=== PATIENT | male | born 1990 | race Asian ===

== ENCOUNTER → 2017-11-11 | Outpatient (REF) | payer MEDICARE, MEDICAID ==
[2017-11-11 13:01] LABS: TOTAL 25(OH) VITAMIN D 18.1 NG/ML (30.0-100.0)
[2017-11-11 13:03] LABS: PTH INTACT 58.6 PG/ML (14.0-72.0)
[2017-11-11 13:10] LABS: ALBUMIN 3.9 GM/DL (3.2-5.2); ALBUMIN/GLOBULIN RATIO 0.95 (1.00-1.93); ALKALINE PHOSPHATASE 145 U/L (45-117); ALT/SGPT 83 U/L (12-78); ANION GAP 5 MEQ/L (8-16); AST/SGOT 41 U/L (7-37); BLOOD UREA NITROGEN 11 MG/DL (7-18); CALCIUM LEVEL 8.5 MG/DL (8.5-10.1); CARBON DIOXIDE LEVEL 28 MEQ/L (21-32); CHLORIDE LEVEL 107 MEQ/L (98-107); CHOLESTEROL LEVEL 170 MG/DL (<200); CHOLESTEROL RISK RATIO 4.047 (<5); CREATININE FOR GFR 0.83 MG/DL (0.70-1.30); GLOMERULAR FILTRATION RATE > 60.0 (>60); GLUCOSE, FASTING 91 MG/DL (70-105); HDL CHOLESTEROL 42 MG/DL (>40); LDL CHOLESTEROL 88.2 MG/DL (<100); NON-HDL-C 128 MG/DL; PHOSPHORUS LEVEL 1.9 MG/DL (2.5-4.9); POTASSIUM SERUM 4.4 MEQ/L (3.5-5.1); SODIUM LEVEL 140 MEQ/L (136-145); TRIGLYCERIDES LEVEL 199 MG/DL (<150)
[2017-11-13 14:13] LABS: VITAMIN D 1,25 DIHYDROXY 28.3 pg/mL (19.9-79.3)
== END ==
LOC: M SFHCPLAZ 08:43
DX: E83.31 Familial hypophosphatemia (principal); Z13.220 Encounter for screening for lipoid disorders; E66.01 Morbid (severe) obesity due to excess calories; Z68.36 Body mass index [BMI] 36.0-36.9, adult
CPT/HCPCS: 84100

== ENCOUNTER → 2017-12-17 | Outpatient (CLI) | payer MEDICARE, MEDICAID ==
[2017-12-17 13:32] LABS: APPEARANCE, URINE CLEAR (CLEAR); BACTERIA, URINE AUTO NEGATIVE (NEGATIVE); BILIRUBIN, URINE AUTO NEGATIVE (NEGATIVE); BLOOD, URINE BLOOD NEGATIVE (NEGATIVE); COLOR, URINE YELLOW (YELLOW); GLUCOSE, URINE (UA) AUTO NEGATIVE (NEGATIVE); KETONE, URINE AUTO NEGATIVE (NEGATIVE); LEUKOCYTE ESTERASE, URINE AUTO NEGATIVE (NEGATIVE); MUCUS, URINE SMALL (NEGATIVE); NITRITE, URINE AUTO NEGATIVE (NEGATIVE); PROTEIN, URINE AUTO NEGATIVE (NEGATIVE); RBC, URINE AUTO 0 /HPF (0-3); SPECIFIC GRAVITY URINE AUTO 1.021 (1.002-1.035); SQUAMOUS EPITHELIAL CELL UR AU 0 /HPF (0-6); UROBILINOGEN, URINE AUTO 0.2 mg/dL (0.0-2.0); WBC, URINE AUTO 0 /HPF (0-3)
[2017-12-17 13:42] LABS: ALBUMIN 3.8 GM/DL (3.2-5.2); ANION GAP 8 MEQ/L (8-16); BLOOD UREA NITROGEN 9 MG/DL (7-18); CALCIUM LEVEL 8.8 MG/DL (8.5-10.1); CARBON DIOXIDE LEVEL 30 MEQ/L (21-32); CHLORIDE LEVEL 105 MEQ/L (98-107); CREATININE FOR GFR 0.81 MG/DL (0.70-1.30); GLOMERULAR FILTRATION RATE > 60.0 (>60); GLUCOSE, FASTING 122 MG/DL (70-100); PHOSPHORUS LEVEL 1.5 MG/DL (2.5-4.9); SODIUM LEVEL 143 MEQ/L (136-145)
[2017-12-17 13:44] LABS: TOTAL 25(OH) VITAMIN D 11.4 NG/ML (30.0-100.0)
[2017-12-19 15:24] LABS: PTH INTACT 64.9 PG/ML (18.5-88.0)
== END ==
LOC: M WUC 09:48
DX: E83.31 Familial hypophosphatemia (principal)
CPT/HCPCS: 80069

== ENCOUNTER 2018-09-23 13:44 | Outpatient (CLI) | payer MEDICARE, MEDICAID ==
[~2018-09-23] VITALS: Ht 163.8 cm; Wt 98.4 kg
[2018-09-23] MEDS ORDERED: [UNRECOGNIZED DRUG - OTHER] ONE (13:45)
[2018-09-23 13:50] VITALS: BP 127/85
[2018-09-23] MEDS ORDERED: ACET1TAB55 PO (14:37)
[2018-09-23] MEDS ORDERED: IBUP200C25 PO (14:37)
[2018-09-23] MEDS ORDERED: ZYRTTAB8 PO (14:37)
[2018-09-23] MEDS: [UNRECOGNIZED DRUG - OTHER] SC SCH (14:48)
[2018-09-23 15:15] VITALS: BP 131/81
== END 2018-09-23 15:20 | disposition home or self-care (01) ==
LOC: M INFU 13:44
PROVIDERS: ATTEND Internal Medicine Nephrology
DX: E83.31 Familial hypophosphatemia (principal)
CPT/HCPCS: 96372; C9399

== ENCOUNTER → 2018-09-30 | Outpatient (CLI) | payer MEDICARE, MEDICAID ==
[2018-09-30 13:54] LABS: PHOSPHORUS LEVEL 3.3 MG/DL (2.5-4.9)
== END ==
LOC: M LAB 12:48
DX: E83.31 Familial hypophosphatemia (principal)
CPT/HCPCS: 84100

== ENCOUNTER 2018-11-18 14:34 | Outpatient (CLI) | payer MEDICARE, MEDICAID ==
[~2018-11-18] VITALS: Ht 165.1 cm; Wt 98.4 kg
[~2018-11-18 14:34] MED LIST: ACET1TAB55 PO; IBUP200C25 PO; ZYRTTAB8 PO
[2018-11-18 14:40] VITALS: BP 152/90
[2018-11-18] MEDS ORDERED: [UNRECOGNIZED DRUG - OTHER] SC ONE (15:00)
[2018-11-18 16:00] VITALS: BP 144/87
== END 2018-11-18 16:00 | disposition home or self-care (01) ==
LOC: M INFU 14:34
PROVIDERS: ATTEND Internal Medicine Nephrology
DX: E83.31 Familial hypophosphatemia (principal); Z88.8 Allergy status to other drugs, medicaments and biological substances; Z88.5 Allergy status to narcotic agent
CPT/HCPCS: 96372; J0584

== ENCOUNTER 2018-12-16 11:34 | Outpatient (CLI) | payer MEDICARE, MEDICAID ==
[~2018-12-16] VITALS: Ht 167.6 cm; Wt 98.4 kg
[2018-12-16 11:40] VITALS: BP 140/93
[2018-12-16] MEDS ORDERED: [UNRECOGNIZED DRUG - OTHER] SC ONE (12:00)
[2018-12-16] MEDS ORDERED: [UNRECOGNIZED DRUG - CODE] SC (12:06)
[2018-12-16 13:20] VITALS: BP 134/88
== END 2018-12-16 13:20 | disposition home or self-care (01) ==
LOC: M INFU 11:34
PROVIDERS: ATTEND Internal Medicine Nephrology
DX: E83.31 Familial hypophosphatemia (principal); Z88.5 Allergy status to narcotic agent; Z88.8 Allergy status to other drugs, medicaments and biological substances
CPT/HCPCS: 96372; J0584

== ENCOUNTER 2019-01-13 11:57 | Outpatient (CLI) | payer MEDICARE, MEDICAID ==
[~2019-01-13] VITALS: Ht 165.1 cm; Wt 98.4 kg
[~2019-01-13 11:57] MED LIST changes: +[UNRECOGNIZED DRUG - CODE] SC
[2019-01-13 12:05] VITALS: BP 140/89
[2019-01-13] MEDS ORDERED: [UNRECOGNIZED DRUG - OTHER] SC ONE (12:15)
[2019-01-13 13:45] VITALS: BP 155/90
== END 2019-01-13 13:45 | disposition home or self-care (01) ==
LOC: M INFU 11:57
PROVIDERS: ATTEND Internal Medicine Nephrology
DX: E83.31 Familial hypophosphatemia (principal); Z88.5 Allergy status to narcotic agent; Z88.8 Allergy status to other drugs, medicaments and biological substances
CPT/HCPCS: 96372; J0584

== ENCOUNTER → 2019-03-11 | Outpatient (REF) | payer MEDICARE, MEDICAID ==
[2019-03-11 18:39] LABS: ALBUMIN 4.1 GM/DL (3.2-5.2); BILIRUBIN,DIRECT 0.2 MG/DL (0.0-0.2); BILIRUBIN,TOTAL 1.2 MG/DL (0.2-1.0)
== END ==
LOC: M LAB REF 17:08
PROVIDERS: ATTEND Internal Medicine Nephrology
DX: R94.5 Abnormal results of liver function studies (principal)

== ENCOUNTER → 2019-04-13 | Outpatient (REF) | payer MEDICARE, MEDICAID ==
[2019-04-13 18:49] LABS: ALBUMIN 3.8 GM/DL (3.2-5.2); BILIRUBIN,DIRECT 0.2 MG/DL (0.0-0.2); BILIRUBIN,TOTAL 1.3 MG/DL (0.2-1.0); TOTAL PROTEIN 7.5 GM/DL (6.4-8.2)
== END ==
LOC: M LAB REF 17:10
PROVIDERS: ATTEND Internal Medicine Nephrology
DX: R94.5 Abnormal results of liver function studies (principal)

== ENCOUNTER → 2019-05-26 | Outpatient (REF) | payer MEDICARE, MEDICAID ==
[2019-05-26 13:38] LABS: ALBUMIN 3.6 GM/DL (3.2-5.2); BILIRUBIN,DIRECT 0.2 MG/DL (0.0-0.2); BILIRUBIN,TOTAL 1.1 MG/DL (0.2-1.0); TOTAL PROTEIN 7.5 GM/DL (6.4-8.2)
== END ==
LOC: M LAB REF 12:56
PROVIDERS: ATTEND Internal Medicine Nephrology
DX: R94.5 Abnormal results of liver function studies (principal)

== ENCOUNTER → 2019-06-24 | Outpatient (REF) | payer MEDICARE, MEDICAID ==
[2019-06-24 18:23] LABS: ALBUMIN 3.9 GM/DL (3.2-5.2); BILIRUBIN,DIRECT 0.2 MG/DL (0.0-0.2); BILIRUBIN,TOTAL 1.1 MG/DL (0.2-1.0); TOTAL PROTEIN 7.8 GM/DL (6.4-8.2)
[2019-06-29 14:29] LABS: EBV VIRAL CAPSID AG IgM <36.0 U/mL (0.0-35.9)
== END ==
LOC: M LAB REF 17:20
PROVIDERS: ATTEND Internal Medicine Nephrology
DX: R94.5 Abnormal results of liver function studies (principal)

== ENCOUNTER → 2019-06-29 | Outpatient (CLI) | payer MEDICARE, MEDICAID ==
--- NOTE | 2019-06-30 11:42 | REP ---
Abdominal right upper quadrant ultrasound, stat request: The studies performed for abnormal liver function tests. Comparison is the abdomen pelvis CT dated 03/04/2011. The the patient has a cholecystectomy. There is no intrahepatic or extrahepatic biliary duct dilatation, the common biliary duct measures 9 mm in diameter. This is normal in a postcholecystectomy patient. The hepatic parenchyma is hyperechoic compatible with hepato steatosis. There are no hepatic masses. Pancreas is obscured by bowel gas. There is no right renal calculus, hydronephrosis, mass or cyst. The right kidney is normal size measuring 11.6 x 6.3 x 4.6 cm. There is no right upper quadrant ascites. Impression: Cholecystectomy. Pancreas obscured by bowel gas. Hepato steatosis. Electronically Signed by Brett Jorge MD 06/29/2019 08:44 A
== END ==
LOC: M RAD 07:51
PROVIDERS: ATTEND Nurse Practitioner Family
DX: K76.0 Fatty (change of) liver, not elsewhere classified (principal); R94.5 Abnormal results of liver function studies; Z90.49 Acquired absence of other specified parts of digestive tract

== ENCOUNTER → 2019-07-03 | Outpatient (REF) | payer MEDICARE, MEDICAID ==
[~2019-07-03] MED LIST changes: +AMLO5TAB6 PO; +METO25TA4 PO; +OYSCTAB3 PO
[2019-07-03 17:57] LABS: ALBUMIN 3.9 GM/DL (3.2-5.2); ALT/SGPT 164 U/L (12-78); BILIRUBIN,TOTAL 1.2 MG/DL (0.2-1.0); BLOOD UREA NITROGEN 13 MG/DL (7-18); CALCIUM LEVEL 8.9 MG/DL (8.5-10.1); CARBON DIOXIDE LEVEL 28 MEQ/L (21-32); CHLORIDE LEVEL 109 MEQ/L (98-107); GLOMERULAR FILTRATION RATE > 60.0 (>60); GLUCOSE, FASTING 103 MG/DL (70-100); MAGNESIUM LEVEL 2.2 MG/DL (1.8-2.4); PHOSPHORUS LEVEL 1.6 MG/DL (2.5-4.9); POTASSIUM SERUM 3.9 MEQ/L (3.5-5.1); SODIUM LEVEL 141 MEQ/L (136-145); TOTAL PROTEIN 7.9 GM/DL (6.4-8.2)
== END ==
LOC: M LAB REF 16:53
PROVIDERS: ATTEND Nurse Practitioner Family
DX: R94.5 Abnormal results of liver function studies (principal); E83.31 Familial hypophosphatemia

== ENCOUNTER → 2019-07-28 | Outpatient (REF) | payer MEDICARE, MEDICAID ==
[~2019-07-28] MED LIST changes: -AMLO5TAB6 PO; -METO25TA4 PO; -OYSCTAB3 PO
[2019-07-28 18:20] LABS: ALBUMIN 3.7 GM/DL (3.2-5.2); ALT/SGPT 146 U/L (12-78); BILIRUBIN,DIRECT 0.2 MG/DL (0.0-0.2); BILIRUBIN,TOTAL 0.9 MG/DL (0.2-1.0); TOTAL PROTEIN 7.4 GM/DL (6.4-8.2)
[2019-07-29 13:35] LABS: HEPATITIS B SURFACE ANTIGEN NEGATIVE (NEGATIVE)
[2019-07-29 14:01] LABS: HEPATITIS C VIRUS ABY INDEX 0.2 INDEX (<0.8)
[2019-07-29 14:02] LABS: HEPATITIS B CORE ANTIBODY IGM NEGATIVE (NEGATIVE)
[2019-07-29 14:04] LABS: HEPATITIS A ANTIBODY IGM NEGATIVE (NEGATIVE)
== END ==
LOC: M LAB REF 17:07
PROVIDERS: ATTEND Nurse Practitioner Family
DX: R94.5 Abnormal results of liver function studies (principal); Z79.899 Other long term (current) drug therapy

== ENCOUNTER 2019-07-31 15:59 | Outpatient (CLI) | payer MEDICARE, MEDICAID ==
[~2019-07-31] VITALS: Ht 165.1 cm; Wt 101.4 kg
[2019-07-31 16:00] VITALS: BP 132/80
[2019-07-31] MEDS ORDERED: [UNRECOGNIZED DRUG - OTHER] SC ONE (17:00)
== END 2019-07-31 17:00 | disposition home or self-care (01) ==
LOC: M INFU 15:59
PROVIDERS: ATTEND Internal Medicine Nephrology
DX: E83.31 Familial hypophosphatemia (principal)
CPT/HCPCS: 96372; J0584

== ENCOUNTER → 2019-08-25 | Outpatient (REF) | payer MEDICARE, MEDICAID ==
[2019-08-26 10:37] LABS: HEPATITIS A ANTIBODY IGM NEGATIVE (NEGATIVE); HEPATITIS B CORE ANTIBODY IGM NEGATIVE (NEGATIVE); HEPATITIS B SURFACE ANTIGEN NEGATIVE (NEGATIVE); HEPATITIS C VIRUS ABY INDEX 0.3 INDEX (<0.8)
== END ==
LOC: M LAB REF 13:21
PROVIDERS: ATTEND Nurse Practitioner Family
DX: R94.5 Abnormal results of liver function studies (principal)

== ENCOUNTER 2019-08-28 15:53 | Outpatient (CLI) | payer MEDICARE, MEDICAID ==
[~2019-08-28] VITALS: Ht 165.1 cm; Wt 101.3 kg
[2019-08-28 16:00] VITALS: BP 133/100
[2019-08-28] MEDS ORDERED: [UNRECOGNIZED DRUG - OTHER] SC ONE (16:30)
[2019-08-28 17:02] VITALS: BP 134/81
[2019-09-03] MEDS ORDERED: REFRIGERATOR IV KEYS XX PRN (14:45)
[2019-09-03] MEDS ORDERED: MIDAZOLAM HCL 100 MG in D5W 80 ML IV SCH (14:45)
== END 2019-08-28 17:02 | disposition home or self-care (01) ==
LOC: M INFU 15:53
PROVIDERS: ATTEND Internal Medicine Nephrology
DX: E83.31 Familial hypophosphatemia (principal)
CPT/HCPCS: 96372; J0584

== ENCOUNTER 2019-09-25 15:45 | Outpatient (CLI) | payer MEDICARE, MEDICAID ==
[~2019-09-25] VITALS: Ht 165.1 cm; Wt 101.3 kg
[~2019-09-25 15:45] MED LIST changes: -AMLO5TAB6 PO; -METO25TA4 PO; -OYSCTAB3 PO
[2019-09-25 16:00] VITALS: BP 137/88
[2019-09-25] MEDS ORDERED: [UNRECOGNIZED DRUG - OTHER] SC ONE (16:00)
[2019-09-25] MEDS ORDERED: METO25TA4 PO (16:39)
[2019-09-25] MEDS ORDERED: OYSCTAB3 PO (16:39)
[2019-09-25] MEDS ORDERED: AMLO5TAB6 PO (16:39)
[2019-09-25 16:50] VITALS: BP 138/89
== END 2019-09-25 16:50 | disposition home or self-care (01) ==
LOC: M INFU 15:45
PROVIDERS: ATTEND Internal Medicine Nephrology
DX: E83.31 Familial hypophosphatemia (principal); R94.5 Abnormal results of liver function studies; Z88.5 Allergy status to narcotic agent; Z88.8 Allergy status to other drugs, medicaments and biological substances
CPT/HCPCS: 80076; 96372; J0584

== ENCOUNTER → 2019-09-25 | Outpatient (REF) | payer MEDICARE, MEDICAID ==
[~2019-09-25] MED LIST changes: +AMLO5TAB6 PO; +METO25TA4 PO; +OYSCTAB3 PO
[2019-09-25 13:45] LABS: ALBUMIN 3.7 GM/DL (3.2-5.2); BILIRUBIN,DIRECT 0.2 MG/DL (0.0-0.2); BILIRUBIN,TOTAL 1.2 MG/DL (0.2-1.0); TOTAL PROTEIN 7.9 GM/DL (6.4-8.2)
== END ==
LOC: M LAB REF 13:06
PROVIDERS: ATTEND Nurse Practitioner Family
DX: R94.5 Abnormal results of liver function studies (principal)

== ENCOUNTER 2019-11-02 16:01 | Outpatient (CLI) | payer MEDICARE, MEDICAID ==
[~2019-11-02] VITALS: Ht 167.6 cm; Wt 101.3 kg
[2019-11-02 16:10] VITALS: BP 136/84
[2019-11-02] MEDS ORDERED: [UNRECOGNIZED DRUG - OTHER] SC ONE (17:00)
[2019-11-02 17:07] VITALS: BP 142/92
== END 2019-11-02 17:08 | disposition home or self-care (01) ==
LOC: M INFU 16:01
PROVIDERS: ATTEND Internal Medicine Nephrology
DX: E83.31 Familial hypophosphatemia (principal)
CPT/HCPCS: 73721; J0584

== ENCOUNTER → 2019-11-02 | Outpatient (CLI) | payer MEDICARE, MEDICAID ==
[~2019-11-02] MED LIST changes: +AMLO5TAB6 PO; +METO25TA4 PO; +OYSCTAB3 PO
--- NOTE | 2019-11-12 20:09 | REP ---
MRI left ankle without contrast: History: Pain in the left ankle. No comparison radiographs. History of hypophosphatemia. Technique: Axial, coronal and sagittal imaging planes utilized. T1 and T2-weighted scans were included with and without fat saturation. MRI findings: Sagittal images show evidence of pes planus. There is a zone of marrow edema in the mid calcaneus along its cranial aspect where there is an irregular low T1, low T2 signal intensity line. This is consistent with a calcaneal stress fracture. There is relatively little marrow edema suggesting that it may be a chronic finding. No displacement is seen. Cortical and medullary bone signal intensity are otherwise normal in the tarsal bones. The talar dome and tibial plafond appear intact. No osteochondral defect lesion is seen. The Achilles tendon is normal in coarse, caliber and signal intensity. Plantar fascia are smooth. The tibialis posterior, flexor digitorum, and flexor hallicis tendons appear intact medially. Laterally, peroneus longus and brevis tendons have an intact appearance. No abnormalities seen in the deltoid ligament. There is no evidence of anterior talofibular ligament disruption. The anterior inferior tibiofibular and the posterior inferior tibiofibular ligaments appear intact. The posterior talofibular ligament has an intact appearance. Calcaneofibular ligament appears intact. Impression: Findings consistent with a calcaneal stress fracture in the cranial aspect of the mid calcaneus. There is some adjacent ankle joint fluid. Pes planus is noted. Electronically Signed by Ash Buckner MD 11/12/2019 08:20 P
== END ==
LOC: M RAD 07:12
PROVIDERS: ATTEND Nurse Practitioner Family
DX: M21.42 Flat foot [pes planus] (acquired), left foot (principal); M25.572 Pain in left ankle and joints of left foot; E83.31 Familial hypophosphatemia

== ENCOUNTER → 2019-11-07 | Outpatient (CLI) | payer MEDICARE, MEDICAID ==
--- NOTE | 2019-11-07 13:49 | REP ---
RIGHT HIP: Two views. HISTORY: Pain in the right hip. FINDINGS: AP and frog-leg views of the right hip demonstrate a screw plate fixation device in place along the lateral aspect of the femur. The end of this screw plate fixation device is not included in the field of view. No femoral fracture is seen. Femoral head is smooth and rounded. There is a surgical clip in the right pelvis. IMPRESSION: Orthopedic fixation device along the lateral aspect of the proximal femur extends off the field of view. No fracture or other acute abnormality seen. Electronically Signed by Ash Buckner MD 11/07/2019 04:10 P
--- NOTE | 2019-11-07 13:50 | REP ---
RIGHT FEMUR SERIES: Four views. HISTORY: Pain in the right mid thigh. No comparison right femur radiographs. FINDINGS: There is a screw plate fixation device along the lateral aspect of the femur from the subtrochanteric region to the lateral femoral condyle. There are associated surgical clips. Mild post-traumatic deformity is seen in the healed fracture in the mid diaphysis. No acute bony abnormality is seen. Electronically Signed by Ash Buckner MD 11/07/2019 04:10 P
== END ==
LOC: M RAD 12:12
PROVIDERS: ATTEND Nurse Practitioner Family
DX: M25.551 Pain in right hip (principal); E83.31 Familial hypophosphatemia; Z96.7 Presence of other bone and tendon implants

== ENCOUNTER → 2019-12-01 | Outpatient (REF) | payer MEDICARE, MEDICAID ==
[2019-12-01 18:41] LABS: ALBUMIN 3.8 GM/DL (3.2-5.2); BILIRUBIN,DIRECT 0.2 MG/DL (0.0-0.2); BILIRUBIN,TOTAL 0.9 MG/DL (0.2-1.0); TOTAL PROTEIN 7.7 GM/DL (6.4-8.2)
== END ==
LOC: M LAB REF 17:45
PROVIDERS: ATTEND Nurse Practitioner Family
DX: R94.5 Abnormal results of liver function studies (principal)

== ENCOUNTER 2019-12-04 15:50 | Outpatient (CLI) | payer MEDICARE, MEDICAID ==
[~2019-12-04] VITALS: Ht 167.6 cm; Wt 101.3 kg
[2019-12-04] MEDS ORDERED: [UNRECOGNIZED DRUG - OTHER] SC ONE (16:45)
[2019-12-04 17:24] VITALS: BP 140/95
== END 2019-12-04 17:37 | disposition home or self-care (01) ==
LOC: M INFU 15:50
PROVIDERS: ATTEND Internal Medicine Nephrology
DX: E83.31 Familial hypophosphatemia (principal); Z88.4 Allergy status to anesthetic agent; Z88.5 Allergy status to narcotic agent
CPT/HCPCS: 96372; J0584

== ENCOUNTER 2019-12-31 14:28 | Outpatient (CLI) | payer MEDICARE, MEDICAID ==
[~2019-12-31] VITALS: Ht 167.6 cm; Wt 101.3 kg
[2019-12-31 14:30] VITALS: BP 131/86
[2019-12-31 15:00] VITALS: BP 132/85
[2019-12-31] MEDS ORDERED: [UNRECOGNIZED DRUG - OTHER] SC ONE (15:00)
== END 2019-12-31 15:00 | disposition home or self-care (01) ==
LOC: M INFU 14:28
PROVIDERS: ATTEND Internal Medicine Nephrology
DX: E83.31 Familial hypophosphatemia (principal); Z88.4 Allergy status to anesthetic agent; Z88.5 Allergy status to narcotic agent
CPT/HCPCS: 96372; J0584

== ENCOUNTER 2020-01-28 16:48 | Outpatient (CLI) | payer MEDICARE, MEDICAID ==
[~2020-01-28] VITALS: Ht 167.6 cm; Wt 101.3 kg
[2020-01-28] MEDS ORDERED: [UNRECOGNIZED DRUG - OTHER] SC SCH (17:00)
[2020-01-28 17:05] VITALS: BP 145/86
== END 2020-01-28 17:25 | disposition home or self-care (01) ==
LOC: M INFU 16:48
PROVIDERS: ATTEND Internal Medicine Nephrology
DX: E83.31 Familial hypophosphatemia (principal); Z88.4 Allergy status to anesthetic agent; Z88.5 Allergy status to narcotic agent
CPT/HCPCS: 96372; J0584

== ENCOUNTER 2020-02-29 16:24 | Outpatient (CLI) | payer MEDICARE, MEDICAID ==
[~2020-02-29] VITALS: Ht 167.6 cm; Wt 101.3 kg
[2020-02-29] MEDS ORDERED: [UNRECOGNIZED DRUG - OTHER] SC ONE (17:00)
== END 2020-02-29 16:55 | disposition home or self-care (01) ==
LOC: M INFU 16:24
PROVIDERS: ATTEND Internal Medicine Nephrology
DX: E83.31 Familial hypophosphatemia (principal); Z88.1 Allergy status to other antibiotic agents; Z88.2 Allergy status to sulfonamides; Z88.8 Allergy status to other drugs, medicaments and biological substances
CPT/HCPCS: 96372; J0584

== ENCOUNTER 2020-03-31 16:43 | Outpatient (CLI) | payer MEDICARE, MEDICAID ==
[~2020-03-31] VITALS: Ht 167.6 cm; Wt 101.3 kg
[2020-03-31 17:18] VITALS: BP 136/87
[2020-03-31] MEDS ORDERED: [UNRECOGNIZED DRUG - OTHER] SC ONE (18:00)
== END 2020-03-31 17:20 | disposition home or self-care (01) ==
LOC: M INFU 16:43
PROVIDERS: ATTEND Internal Medicine Nephrology
DX: E83.31 Familial hypophosphatemia (principal)
CPT/HCPCS: 96372; J0584

== ENCOUNTER → 2020-05-04 | Outpatient (REF) | payer MEDICARE, MEDICAID ==
[2020-05-04 17:32] LABS: ALBUMIN 3.9 GM/DL (3.2-5.2); BILIRUBIN,DIRECT 0.2 MG/DL (0.0-0.2); BILIRUBIN,TOTAL 1.2 MG/DL (0.2-1.0)
== END ==
LOC: M LAB REF 16:36
PROVIDERS: ATTEND Internal Medicine Nephrology
DX: R94.5 Abnormal results of liver function studies (principal)

== ENCOUNTER 2020-05-12 15:49 | Outpatient (CLI) | payer MEDICARE, MEDICAID ==
[~2020-05-12] VITALS: Ht 167.6 cm; Wt 101.3 kg
[~2020-05-12 15:49] MED LIST changes: +AMLO1TAB24 PO; -AMLO5TAB6 PO
[2020-05-12] MEDS ORDERED: [UNRECOGNIZED DRUG - OTHER] SC ONE (16:00)
[2020-05-12 16:01] VITALS: BP 143/90
[2020-05-12 16:24] VITALS: BP 148/89
== END 2020-05-12 16:25 | disposition home or self-care (01) ==
LOC: M INFU 15:49
PROVIDERS: ATTEND Internal Medicine Nephrology
DX: E83.31 Familial hypophosphatemia (principal)
CPT/HCPCS: 96372; J0584

== ENCOUNTER 2020-06-09 13:30 | Outpatient (CLI) | payer MEDICARE, MEDICAID ==
[2020-06-09] MEDS ORDERED: [UNRECOGNIZED DRUG - OTHER] ONE (13:31)
== END 2020-06-09 16:50 | disposition home or self-care (01) ==
LOC: M INFU 13:30
PROVIDERS: ATTEND Internal Medicine Nephrology
DX: E83.31 Familial hypophosphatemia (principal)
CPT/HCPCS: 96365; J0584

== ENCOUNTER 2020-07-13 11:59 | Outpatient (CLI) | payer MEDICARE, MEDICAID ==
[~2020-07-13] VITALS: Ht 167.6 cm; Wt 101.3 kg
[~2020-07-13 11:59] MED LIST changes: +[UNRECOGNIZED DRUG - OTHER] SC ONE
[2020-07-13 12:00] VITALS: BP 152/89
[2020-07-13] MEDS ORDERED: [UNRECOGNIZED DRUG - OTHER] SC ONE (12:00)
== END 2020-07-13 12:25 | disposition home or self-care (01) ==
LOC: M INFU 11:59
PROVIDERS: ATTEND Internal Medicine Nephrology
DX: E83.31 Familial hypophosphatemia (principal)
CPT/HCPCS: 96372; J0584

== ENCOUNTER 2020-08-10 11:48 | Outpatient (CLI) | payer MEDICARE, MEDICAID ==
[~2020-08-10] VITALS: Ht 167.6 cm; Wt 101.3 kg
[~2020-08-10 11:48] MED LIST changes: -[UNRECOGNIZED DRUG - OTHER] SC ONE
[2020-08-10 11:55] VITALS: BP 138/89
[2020-08-10] MEDS ORDERED: METO37.5 PO (11:58)
[2020-08-10] MEDS: [UNRECOGNIZED DRUG - OTHER] SC ONE (12:07)
== END 2020-08-10 12:35 | disposition home or self-care (01) ==
LOC: M INFU 11:48
PROVIDERS: ATTEND Internal Medicine Nephrology
DX: E83.31 Familial hypophosphatemia (principal)
CPT/HCPCS: 96372; J0584

== ENCOUNTER → 2020-08-25 | Outpatient (CLI) | payer MEDICARE, MEDICAID ==
[~2020-08-25] MED LIST changes: +METO37.5 PO
[2020-08-25 19:45] LABS: BASO # 0.1 10^3/uL (0.0-0.2); BASO % 0.8 % (0.0-1.0); EOS # 0.3 10^3/uL (0.0-0.5); EOS % 2.6 % (0.0-3.0); HEMATOCRIT 49.2 % (42.0-52.0); HEMOGLOBIN 16.8 g/dl (13.5-17.5); LYMPH # 3.6 10^3/uL (1.5-5.0); LYMPH % 34.2 % (24.0-44.0); MEAN CORPUSCULAR HEMOGLOBIN 30.3 pg (27.0-33.0); MEAN CORPUSCULAR HGB CONC 34.1 g/dl (32.0-36.5); MEAN CORPUSCULAR VOLUME 88.8 fl (80.0-96.0); MONO # 0.8 10^3/uL (0.0-0.8); MONO % 7.2 % (0.0-5.0); NEUTROPHILS # 5.8 10^3/uL (1.5-8.5); NEUTROPHILS % 54.9 % (36.0-66.0); PLATELET COUNT, AUTOMATED 332 10^3/uL (150-450); RED BLOOD COUNT 5.54 10^6/uL (4.30-6.10); WHITE BLOOD COUNT 10.6 10^3/uL (4.0-10.0)
[2020-08-25 20:00] LABS: INR 0.93; PROTHROMBIN TIME 12.7 SECONDS (12.5-14.3)
[2020-08-25 20:01] LABS: PARTIAL THROMBOPLASTIN TIME 29.5 SECONDS (24.2-38.5)
[2020-08-25 20:21] LABS: ALT/SGPT 136 U/L (12-78); BILIRUBIN,DIRECT 0.2 MG/DL (0.0-0.2); BILIRUBIN,TOTAL 1.2 MG/DL (0.2-1.0); BLOOD UREA NITROGEN 8 MG/DL (7-18); CALCIUM LEVEL 9.1 MG/DL (8.5-10.1); CARBON DIOXIDE LEVEL 27 MEQ/L (21-32); CHLORIDE LEVEL 104 MEQ/L (98-107); CREATININE FOR GFR 0.86 MG/DL (0.70-1.30); FERRITIN 302 NG/ML (26-388); GLOMERULAR FILTRATION RATE > 60.0 (>60); GLUCOSE, FASTING 69 MG/DL (70-100); HEPATITIS B SURFACE ANTIBODY NEGATIVE (POSITIVE); IMMUNOGLOBULIN G 1500 MG/DL (681-1648); IMMUNOGLOBULIN M 78.5 MG/DL (40-230); IRON (FE) 86 UG/DL (65-175); PERCENT SATURATION 27.1 % (19.7-50.0); POTASSIUM SERUM 3.7 MEQ/L (3.5-5.1); SODIUM LEVEL 138 MEQ/L (136-145); TOTAL IRON BINDING CAPACITY 317 UG/DL (250-450); TOTAL PROTEIN 8.2 GM/DL (6.4-8.2)
[2020-08-25 20:31] LABS: HEPATITIS B SURFACE ANTIGEN NEGATIVE (NEGATIVE)
[2020-08-25 20:58] LABS: HEPATITIS C VIRUS ABY INDEX 0.1 INDEX (<0.8)
[2020-08-29 17:06] LABS: AFP TUMOR TOTAL 2.2 ng/mL (0.0-8.0); ALPHA 1 ANTITRYPSIN 143 mg/dL (95-164); ANTI-MITOCHONDRIAL ANTIBODY <20.0 Units (0.0-20.0); ANTINUCLEAR ANTIBODIES DIRECT Negative (Negative); CERULOPLASMIN 26.8 mg/dL (16.0-31.0); HEPATITIS A IgG TOTAL Negative (Negative); TRANSFERRIN 247 mg/dL (177-329)
== END ==
LOC: M WUC 16:23
PROVIDERS: ATTEND Nurse Practitioner Family
DX: R74.8 Abnormal levels of other serum enzymes (principal); I25.10 Atherosclerotic heart disease of native coronary artery without angina pectoris; Z79.899 Other long term (current) drug therapy

== ENCOUNTER → 2020-09-12 | Outpatient (CLI) | payer MEDICARE, MEDICAID ==
[~2020-09-12] VITALS: Ht 167.6 cm; Wt 101.0 kg
[~2020-09-12] MED LIST changes: +[UNRECOGNIZED DRUG - OTHER] SC ONE
[2020-09-12 16:24] VITALS: BP 161/110
== END ==
LOC: M INFU 16:08
PROVIDERS: ATTEND Internal Medicine Nephrology
DX: E83.31 Familial hypophosphatemia (principal); Z88.6 Allergy status to analgesic agent
CPT/HCPCS: 96372; J0584

== ENCOUNTER 2020-10-12 15:59 | Outpatient (CLI) | payer MEDICARE, MEDICAID ==
[~2020-10-12] VITALS: Ht 167.6 cm; Wt 101.0 kg
[~2020-10-12 15:59] MED LIST changes: -[UNRECOGNIZED DRUG - OTHER] SC ONE
[2020-10-12] MEDS ORDERED: [UNRECOGNIZED DRUG - OTHER] SC ONE (16:00)
[2020-10-12 16:10] VITALS: BP 144/93
== END 2020-10-12 16:30 | disposition home or self-care (01) ==
LOC: M INFU 15:59
PROVIDERS: ATTEND Internal Medicine Nephrology
DX: E83.31 Familial hypophosphatemia (principal); Z88.6 Allergy status to analgesic agent
CPT/HCPCS: 96372; J0584

== ENCOUNTER 2020-11-15 15:50 | Outpatient (CLI) | payer MEDICARE, MEDICAID ==
[~2020-11-15] VITALS: Ht 167.6 cm; Wt 101.0 kg
[2020-11-15 16:00] VITALS: BP 161/92
[2020-11-15] MEDS ORDERED: [UNRECOGNIZED DRUG - OTHER] SC ONE (16:00)
[2020-11-15 16:30] VITALS: BP 158/91
== END 2020-11-15 16:30 | disposition home or self-care (01) ==
LOC: M INFU 15:50
PROVIDERS: ATTEND Internal Medicine Nephrology
DX: E83.31 Familial hypophosphatemia (principal); Z88.6 Allergy status to analgesic agent; Z88.8 Allergy status to other drugs, medicaments and biological substances
CPT/HCPCS: 96372; J0584

== ENCOUNTER 2020-12-16 16:19 | Outpatient (CLI) | payer MEDICARE, MEDICAID ==
[~2020-12-16] VITALS: Ht 167.6 cm; Wt 101.0 kg
[2020-12-16] MEDS ORDERED: [UNRECOGNIZED DRUG - OTHER] SC ONE (16:30)
[2020-12-16 16:43] VITALS: BP 138/88
== END 2020-12-16 17:00 | disposition home or self-care (01) ==
LOC: M INFU 16:19
PROVIDERS: ATTEND Internal Medicine Nephrology
DX: E83.31 Familial hypophosphatemia (principal); Z88.8 Allergy status to other drugs, medicaments and biological substances; Z88.6 Allergy status to analgesic agent
CPT/HCPCS: 96372; J0584

== ENCOUNTER 2021-01-13 16:14 | Outpatient (CLI) | payer MEDICARE, MEDICAID ==
[~2021-01-13] VITALS: Ht 167.6 cm; Wt 101.0 kg
[~2021-01-13 16:14] MED LIST changes: +[UNRECOGNIZED DRUG - OTHER] SC ONE
[2021-01-13 16:15] VITALS: BP 150/98
[2021-01-13 17:00] VITALS: BP 148/95
== END 2021-01-13 17:00 | disposition home or self-care (01) ==
LOC: M INFU 16:14
PROVIDERS: ATTEND Internal Medicine Nephrology
DX: E83.31 Familial hypophosphatemia (principal); Z88.6 Allergy status to analgesic agent; Z88.8 Allergy status to other drugs, medicaments and biological substances
CPT/HCPCS: 82340; 82570; 96372; J0584

== ENCOUNTER → 2021-01-13 | Outpatient (REF) | payer MEDICARE, MEDICAID ==
[2021-01-13 19:37] LABS: CALCIUM,RANDOM URINE 5.3 MG/DL; CREATININE,RANDOM URINE 33.6 MG/DL
== END ==
LOC: M LAB REF 18:17
PROVIDERS: ATTEND Nurse Practitioner Family
DX: E83.31 Familial hypophosphatemia (principal)

== ENCOUNTER → 2021-02-01 | Outpatient (CLI) | payer MEDICARE, MEDICAID ==
[~2021-02-01] MED LIST changes: -[UNRECOGNIZED DRUG - OTHER] SC ONE
--- NOTE | 2021-02-02 03:43 | REP ---
INDICATION: CALCULUS OF KIDNEY COMPARISON: 03/04/2011 TECHNIQUE: Axial noncontrast images from the lung bases to the pubic symphysis with coronal and sagittal reformations. This CT examination was performed using the following dose reduction techniques: Automated exposure control, adjustment of mA and/or kv according to the patient's size, and use of iterative reconstruction technique. FINDINGS: Lung bases are clear. Visualized heart and pericardium normal. Liver demonstrates fatty infiltration. The spleen, pancreas, bilateral adrenal glands and kidneys are normal. Specifically, the kidneys are without perinephric stranding, hydroureteronephrosis, intrarenal or obstructing ureteral calculi. The enteric system is unremarkable and without obstruction or acute inflammatory process. Normal terminal ileum and appendix identified in the right lower quadrant. Pelvis demonstrates normal bladder and age-appropriate prostate/seminal vesicles. No ascites. No free air. No adenopathy. No focal inflammatory stranding. Abdominal aorta without aneurysm. Musculoskeletal structures are intact and without acute osseous abnormality. IMPRESSION: No acute abdominopelvic pathology appreciated. Normal appearance of the kidneys without nephrolithiasis or hydronephrosis. Hepatosteatosis. <Electronically signed by Jos Slater > 02/02/21 033
== END ==
LOC: M RAD 18:12
PROVIDERS: ATTEND Nurse Practitioner Family
DX: N20.0 Calculus of kidney (principal)

== ENCOUNTER 2021-02-15 15:50 | Outpatient (CLI) | payer MEDICARE, MEDICAID ==
[~2021-02-15] VITALS: Ht 167.6 cm; Wt 101.0 kg
[2021-02-15] MEDS ORDERED: [UNRECOGNIZED DRUG - OTHER] SC ONE (16:00)
[2021-02-15 16:05] VITALS: BP 150/97
== END 2021-02-15 16:15 | disposition home or self-care (01) ==
LOC: M INFU 15:50
PROVIDERS: ATTEND Internal Medicine Nephrology
DX: E83.31 Familial hypophosphatemia (principal); Z88.8 Allergy status to other drugs, medicaments and biological substances
CPT/HCPCS: 96372; J0584

== ENCOUNTER 2021-03-20 17:19 | Outpatient (CLI) | payer MEDICARE, MEDICAID ==
[~2021-03-20] VITALS: Ht 167.6 cm; Wt 101.0 kg
[~2021-03-20 17:19] MED LIST changes: +[UNRECOGNIZED DRUG - OTHER] SC ONE
[2021-03-20 17:50] VITALS: BP 141/98
== END 2021-03-20 17:55 | disposition home or self-care (01) ==
LOC: M INFU 17:19
PROVIDERS: ATTEND Internal Medicine Nephrology
DX: E78.01 Familial hypercholesterolemia (principal); Z88.8 Allergy status to other drugs, medicaments and biological substances
CPT/HCPCS: 96372; J0584

== ENCOUNTER 2021-05-26 15:15 | Outpatient (CLI) | payer MEDICARE, MEDICAID ==
[~2021-05-26] VITALS: Ht 167.6 cm; Wt 112.0 kg
[~2021-05-26 15:15] MED LIST changes: -[UNRECOGNIZED DRUG - OTHER] SC ONE
[2021-05-26 15:25] VITALS: BP 140/82
[2021-05-26 15:50] VITALS: BP 136/73
[2021-05-26] MEDS ORDERED: [UNRECOGNIZED DRUG - OTHER] SC ONE (16:00)
== END 2021-05-26 15:50 | disposition home or self-care (01) ==
LOC: M INFU 15:15
PROVIDERS: ATTEND Internal Medicine Nephrology
DX: E78.01 Familial hypercholesterolemia (principal); Z88.6 Allergy status to analgesic agent
CPT/HCPCS: 96372; J0584

== ENCOUNTER 2021-06-28 16:11 | Outpatient (CLI) | payer MEDICARE, MEDICAID ==
[~2021-06-28] VITALS: Ht 167.6 cm; Wt 101.0 kg
[~2021-06-28 16:11] MED LIST changes: +[UNRECOGNIZED DRUG - OTHER] SC ONE
[2021-06-28 16:15] VITALS: BP 141/67
[2021-06-28 16:45] VITALS: BP 138/68
== END 2021-06-28 16:45 | disposition home or self-care (01) ==
LOC: M INFU 16:11
PROVIDERS: ATTEND Internal Medicine Nephrology
DX: E78.01 Familial hypercholesterolemia (principal); Z88.8 Allergy status to other drugs, medicaments and biological substances; Z88.6 Allergy status to analgesic agent
CPT/HCPCS: 96372; J0584

== ENCOUNTER 2021-07-31 15:31 | Outpatient (CLI) | payer MEDICARE, MEDICAID ==
[~2021-07-31] VITALS: Ht 167.6 cm; Wt 113.6 kg
[2021-07-31 15:40] VITALS: BP 138/82
== END 2021-07-31 16:15 | disposition home or self-care (01) ==
LOC: M INFU 15:31
PROVIDERS: ATTEND Internal Medicine Nephrology
DX: E83.31 Familial hypophosphatemia (principal); Z88.8 Allergy status to other drugs, medicaments and biological substances
CPT/HCPCS: 96372; J0584

== ENCOUNTER 2021-09-01 15:25 | Outpatient (CLI) | payer MEDICARE, MEDICAID ==
[~2021-09-01] VITALS: Ht 167.6 cm; Wt 113.6 kg
[2021-09-01 15:51] VITALS: BP 127/76
[2021-09-01] MEDS ORDERED: [UNRECOGNIZED DRUG - OTHER] SC ONE (16:00)
== END 2021-09-01 16:00 | disposition home or self-care (01) ==
LOC: M INFU 15:25
PROVIDERS: ATTEND Internal Medicine Nephrology
DX: E83.31 Familial hypophosphatemia (principal); Z88.8 Allergy status to other drugs, medicaments and biological substances
CPT/HCPCS: 96372; J0584

== ENCOUNTER 2021-09-25 15:50 | Outpatient (CLI) | payer MEDICARE, MEDICAID ==
[~2021-09-25] VITALS: Ht 167.6 cm; Wt 113.0 kg
[~2021-09-25 15:50] MED LIST changes: -[UNRECOGNIZED DRUG - OTHER] SC ONE
[2021-09-25] MEDS ORDERED: [UNRECOGNIZED DRUG - OTHER] SC ONE (16:00)
[2021-09-25 16:07] VITALS: BP 147/89
== END 2021-09-25 16:05 | disposition home or self-care (01) ==
LOC: M INFU 15:50
PROVIDERS: ATTEND Internal Medicine Nephrology
DX: E83.31 Familial hypophosphatemia (principal); Z88.8 Allergy status to other drugs, medicaments and biological substances
CPT/HCPCS: 96372; J0584

== ENCOUNTER → 2021-10-05 | Outpatient (REF) | payer MEDICARE, MEDICAID ==
[~2021-10-05] MED LIST changes: +METO1TAB33 PO
== END ==
LOC: M LAB REF 17:07
PROVIDERS: ATTEND Nurse Practitioner Family
DX: E83.42 Hypomagnesemia (principal)

== ENCOUNTER 2021-10-23 16:31 | Outpatient (CLI) | payer MEDICARE, MEDICAID ==
[~2021-10-23] VITALS: Ht 167.6 cm; Wt 115.9 kg
[~2021-10-23 16:31] MED LIST changes: -METO1TAB33 PO
[2021-10-23 16:35] VITALS: BP 134/80
[2021-10-23] MEDS ORDERED: METO1TAB33 PO (16:49)
[2021-10-23] MEDS ORDERED: [UNRECOGNIZED DRUG - OTHER] SC ONE (17:00)
[2021-10-23 17:20] VITALS: BP 139/87
== END 2021-10-23 17:20 | disposition home or self-care (01) ==
LOC: M INFU 16:31
PROVIDERS: ATTEND Internal Medicine Nephrology
DX: E83.31 Familial hypophosphatemia (principal); Z88.8 Allergy status to other drugs, medicaments and biological substances
CPT/HCPCS: 96372; J0584

== ENCOUNTER → 2021-10-31 | Outpatient (CLI) | payer MEDICARE, MEDICAID ==
[~2021-10-31] MED LIST changes: +METO1TAB33 PO
== END ==
LOC: M LAB 16:25
PROVIDERS: ATTEND Nurse Practitioner Family
DX: M25.551 Pain in right hip (principal); Z87.81 Personal history of (healed) traumatic fracture

== ENCOUNTER 2021-11-20 12:13 | Outpatient (CLI) | payer MEDICARE, MEDICAID ==
[~2021-11-20] VITALS: Ht 167.6 cm; Wt 115.9 kg
[2021-11-20 12:47] VITALS: BP 113/68
[2021-11-20] MEDS ORDERED: [UNRECOGNIZED DRUG - OTHER] SC ONE (16:00)
== END 2021-11-20 12:45 ==
LOC: M INFU 12:13
PROVIDERS: ATTEND Internal Medicine Nephrology
DX: E83.31 Familial hypophosphatemia (principal)
CPT/HCPCS: 96372; J0584

== ENCOUNTER 2021-12-18 15:56 | Outpatient (CLI) | payer MEDICARE, MEDICAID ==
[2021-12-18] MEDS ORDERED: [UNRECOGNIZED DRUG - OTHER] SC ONE (16:00)
[2021-12-18 16:05] VITALS: BP 140/97
== END 2021-12-18 16:15 | disposition home or self-care (01) ==
LOC: M INFU 15:56
PROVIDERS: ATTEND Internal Medicine Nephrology
DX: E83.31 Familial hypophosphatemia (principal); Z88.4 Allergy status to anesthetic agent; Z88.6 Allergy status to analgesic agent
CPT/HCPCS: 96372; J0584

== ENCOUNTER 2022-01-15 15:59 | Outpatient (CLI) | payer MEDICARE, MEDICAID ==
[~2022-01-15] VITALS: Ht 167.6 cm; Wt 115.9 kg
[2022-01-15] MEDS ORDERED: [UNRECOGNIZED DRUG - OTHER] SC SCH (16:00)
[2022-01-15 16:05] VITALS: BP 136/89
== END 2022-01-15 16:25 | disposition home or self-care (01) ==
LOC: M INFU 15:59
PROVIDERS: ATTEND Internal Medicine Nephrology
DX: E83.31 Familial hypophosphatemia (principal); Z88.4 Allergy status to anesthetic agent; Z88.6 Allergy status to analgesic agent
CPT/HCPCS: 96372; J0584

== ENCOUNTER 2022-02-16 14:25 | Outpatient (CLI) | payer MEDICARE, MEDICAID ==
[~2022-02-16] VITALS: Ht 167.6 cm; Wt 115.9 kg
[2022-02-16 14:22] VITALS: BP 137/94
[~2022-02-16 14:25] MED LIST changes: +[UNRECOGNIZED DRUG - OTHER] SC ONE
[2022-02-16 14:30] VITALS: BP 137/94
[2022-02-16] MEDS ORDERED: [UNRECOGNIZED DRUG - OTHER] SC ONE (14:30)
== END 2022-02-16 14:55 | disposition home or self-care (01) ==
LOC: M INFU 14:25
PROVIDERS: ATTEND Internal Medicine Nephrology
DX: E83.31 Familial hypophosphatemia (principal); Z88.4 Allergy status to anesthetic agent; Z88.6 Allergy status to analgesic agent
CPT/HCPCS: 36415; 96372; J0584

== ENCOUNTER 2022-02-20 14:50 | Outpatient (RCR) | payer MEDICARE, MEDICAID ==
[~2022-02-20 14:50] MED LIST changes: -[UNRECOGNIZED DRUG - OTHER] SC ONE
== END 2022-03-03 ==
LOC: M PT 14:50
PROVIDERS: ATTEND Orthopaedic Surgery
DX: M70.61 Trochanteric bursitis, right hip (principal)
CPT/HCPCS: 97110; 97140; 97162; G0283

== ENCOUNTER 2022-03-16 14:59 | Outpatient (CLI) | payer MEDICARE, MEDICAID ==
[~2022-03-16] VITALS: Ht 167.6 cm; Wt 115.9 kg
[~2022-03-16 14:59] MED LIST changes: +[UNRECOGNIZED DRUG - OTHER] SC ONE
[2022-03-16 15:05] VITALS: BP 143/83
== END 2022-03-16 16:00 | disposition home or self-care (01) ==
LOC: M INFU 14:59
PROVIDERS: ATTEND Internal Medicine Nephrology
DX: E83.31 Familial hypophosphatemia (principal); Z88.4 Allergy status to anesthetic agent; Z88.6 Allergy status to analgesic agent
CPT/HCPCS: 96372; J0584

== ENCOUNTER 2022-04-13 15:24 | Outpatient (CLI) | payer MEDICARE, MEDICAID ==
[~2022-04-13] VITALS: Ht 167.6 cm; Wt 115.9 kg
[~2022-04-13 15:24] MED LIST changes: +[UNRECOGNIZED DRUG - OTHER] SC ONE
[2022-04-13 15:25] VITALS: BP 130/70
[2022-04-13 15:45] VITALS: BP 147/75
== END 2022-04-13 15:45 | disposition home or self-care (01) ==
LOC: M INFU 15:24
PROVIDERS: ATTEND Internal Medicine Nephrology
DX: E83.31 Familial hypophosphatemia (principal); Z88.4 Allergy status to anesthetic agent; Z88.6 Allergy status to analgesic agent
CPT/HCPCS: 82340; 82570; 96372; J0584

== ENCOUNTER → 2022-04-13 | Outpatient (REF) | payer MEDICARE, MEDICAID ==
[~2022-04-13] MED LIST changes: -[UNRECOGNIZED DRUG - OTHER] SC ONE
[2022-04-13 17:50] LABS: CALCIUM,RANDOM URINE 5.9 MG/DL; CREATININE,RANDOM URINE 22.6 MG/DL
== END ==
LOC: M LAB REF 16:44
PROVIDERS: ATTEND Nurse Practitioner Family
DX: E83.31 Familial hypophosphatemia (principal)

== ENCOUNTER 2022-05-11 16:20 | Outpatient (CLI) | payer MEDICARE, MEDICAID ==
[~2022-05-11] VITALS: Ht 167.6 cm; Wt 115.8 kg
[2022-05-11 16:20] VITALS: BP 130/72
[2022-05-11] MEDS ORDERED: [UNRECOGNIZED DRUG - OTHER] SC ONE (16:30)
[2022-05-11 16:45] VITALS: BP 137/77
== END 2022-05-11 16:45 | disposition home or self-care (01) ==
LOC: M INFU 16:20
PROVIDERS: ATTEND Internal Medicine Nephrology
DX: E78.01 Familial hypercholesterolemia (principal); Z88.6 Allergy status to analgesic agent; Z88.8 Allergy status to other drugs, medicaments and biological substances
CPT/HCPCS: 96372; J0584

== ENCOUNTER → 2022-05-11 | Outpatient (REF) | payer MEDICARE, MEDICAID ==
[~2022-05-11] MED LIST changes: -[UNRECOGNIZED DRUG - OTHER] SC ONE
[2022-05-11 17:56] LABS: CALCIUM,RANDOM URINE 6.2 MG/DL
== END ==
LOC: M LAB REF 16:58
PROVIDERS: ATTEND Nurse Practitioner Family
DX: E83.31 Familial hypophosphatemia (principal)

== ENCOUNTER 2022-06-08 14:55 | Outpatient (CLI) | payer MEDICARE, MEDICAID ==
[~2022-06-08] VITALS: Ht 167.6 cm; Wt 115.0 kg
[2022-06-08 15:00] VITALS: BP 127/74
[2022-06-08] MEDS ORDERED: [UNRECOGNIZED DRUG - OTHER] SC ONE (15:00)
[2022-06-08 15:30] VITALS: BP 130/83
== END 2022-06-08 15:30 | disposition home or self-care (01) ==
LOC: M INFU 14:55
PROVIDERS: ATTEND Internal Medicine Nephrology
DX: E83.31 Familial hypophosphatemia (principal); Z88.6 Allergy status to analgesic agent; Z88.4 Allergy status to anesthetic agent
CPT/HCPCS: 96372; J0584

== ENCOUNTER 2022-07-06 15:32 | Outpatient (CLI) | payer MEDICARE, MEDICAID ==
[~2022-07-06] VITALS: Ht 167.6 cm; Wt 115.0 kg
[~2022-07-06 15:32] MED LIST changes: +[UNRECOGNIZED DRUG - OTHER] SC ONE
[2022-07-06 15:35] VITALS: BP 140/85
== END 2022-07-06 15:45 | disposition home or self-care (01) ==
LOC: M INFU 15:32
PROVIDERS: ATTEND Internal Medicine Nephrology
DX: E83.31 Familial hypophosphatemia (principal); Z88.6 Allergy status to analgesic agent; Z88.4 Allergy status to anesthetic agent
CPT/HCPCS: 96372; J0584

== ENCOUNTER 2022-08-03 15:00 | Outpatient (CLI) | payer MEDICARE, MEDICAID ==
[~2022-08-03] VITALS: Ht 160 cm; Wt 115.0 kg
[2022-08-03 15:10] VITALS: BP 137/83
== END 2022-08-03 15:25 | disposition home or self-care (01) ==
LOC: M INFU 15:00
PROVIDERS: ATTEND Internal Medicine Nephrology
DX: E83.31 Familial hypophosphatemia (principal); Z88.6 Allergy status to analgesic agent; Z88.4 Allergy status to anesthetic agent
CPT/HCPCS: 96372; J0584

== ENCOUNTER 2022-08-31 15:00 | Outpatient (CLI) | payer MEDICARE, MEDICAID ==
[~2022-08-31] VITALS: Ht 160 cm; Wt 115.0 kg
[2022-08-31 15:00] VITALS: BP 126/70
== END 2022-08-31 15:15 | disposition home or self-care (01) ==
LOC: M INFU 15:00
PROVIDERS: ATTEND Internal Medicine Nephrology
DX: E83.31 Familial hypophosphatemia (principal); Z88.4 Allergy status to anesthetic agent; Z88.6 Allergy status to analgesic agent
CPT/HCPCS: 96372; J0584

== ENCOUNTER 2022-10-01 14:55 | Outpatient (CLI) | payer MEDICARE, MEDICAID ==
[~2022-10-01] VITALS: Ht 167.6 cm; Wt 115.0 kg
[~2022-10-01 14:55] MED LIST changes: -[UNRECOGNIZED DRUG - OTHER] SC ONE
[2022-10-01] MEDS ORDERED: [UNRECOGNIZED DRUG - OTHER] SC ONE (15:00)
[2022-10-01 15:06] VITALS: BP 128/67
== END 2022-10-01 15:15 | disposition home or self-care (01) ==
LOC: M INFU 14:55
PROVIDERS: ATTEND Internal Medicine Nephrology
DX: E83.31 Familial hypophosphatemia (principal); Z88.5 Allergy status to narcotic agent; Z88.4 Allergy status to anesthetic agent
CPT/HCPCS: 96372; J0584

== ENCOUNTER 2022-10-30 15:00 | Outpatient (CLI) | payer MEDICARE, MEDICAID ==
[~2022-10-30] VITALS: Ht 167.6 cm; Wt 115.0 kg
[~2022-10-30 15:00] MED LIST changes: +[UNRECOGNIZED DRUG - OTHER] SC ONE
[2022-10-30 15:06] VITALS: BP 134/76
== END 2022-10-30 15:25 ==
LOC: M INFU 15:00
PROVIDERS: ATTEND Internal Medicine Nephrology
DX: E83.31 Familial hypophosphatemia (principal); Z88.6 Allergy status to analgesic agent; Z88.4 Allergy status to anesthetic agent
CPT/HCPCS: 96372; J0584

== ENCOUNTER 2022-11-27 15:00 | Outpatient (CLI) | payer MEDICARE, MEDICAID ==
[~2022-11-27] VITALS: Ht 167.6 cm; Wt 115.0 kg
[2022-11-27 14:59] VITALS: BP 142/78
== END 2022-11-27 15:20 | disposition home or self-care (01) ==
LOC: M INFU 15:00
PROVIDERS: ATTEND Internal Medicine Nephrology
DX: E83.31 Familial hypophosphatemia (principal); Z88.4 Allergy status to anesthetic agent; Z88.6 Allergy status to analgesic agent
CPT/HCPCS: 96372; J0584

== ENCOUNTER 2022-12-25 15:00 | Outpatient (CLI) | payer MEDICARE, MEDICAID ==
[2022-12-25 15:14] VITALS: BP 130/80
== END 2022-12-25 15:15 | disposition home or self-care (01) ==
LOC: M INFU 15:00
PROVIDERS: ATTEND Internal Medicine Nephrology
DX: E83.31 Familial hypophosphatemia (principal); Z88.4 Allergy status to anesthetic agent; Z88.6 Allergy status to analgesic agent
CPT/HCPCS: 96372; J0584

== ENCOUNTER 2023-01-22 14:50 | Outpatient (CLI) | payer MEDICARE, MEDICAID ==
[~2023-01-22] VITALS: Ht 167.6 cm; Wt 115.0 kg
[2023-01-22 14:50] VITALS: BP 134/83
[~2023-01-22 14:50] MED LIST changes: -[UNRECOGNIZED DRUG - OTHER] SC ONE
[2023-01-22] MEDS ORDERED: [UNRECOGNIZED DRUG - OTHER] SC ONE (15:00)
== END 2023-01-22 15:20 | disposition home or self-care (01) ==
LOC: M INFU 14:50
PROVIDERS: ATTEND Internal Medicine Nephrology
DX: E83.31 Familial hypophosphatemia (principal); Z88.5 Allergy status to narcotic agent; Z88.4 Allergy status to anesthetic agent
CPT/HCPCS: 96372; J0584

== ENCOUNTER 2023-02-19 14:55 | Outpatient (CLI) | payer MEDICARE, MEDICAID ==
[~2023-02-19] VITALS: Ht 167.6 cm; Wt 115.0 kg
[2023-02-19 14:55] VITALS: BP 116/66
[2023-02-19] MEDS ORDERED: [UNRECOGNIZED DRUG - OTHER] SC ONE ×2 (15:00→16:00)
== END 2023-02-19 15:25 | disposition home or self-care (01) ==
LOC: M INFU 14:55
PROVIDERS: ATTEND Internal Medicine Nephrology
DX: E83.31 Familial hypophosphatemia (principal); Z88.4 Allergy status to anesthetic agent; Z88.5 Allergy status to narcotic agent
CPT/HCPCS: 96372; J0584

== ENCOUNTER → 2023-04-16 | Outpatient (CLI) | payer MEDICARE, MEDICAID ==
[~2023-04-16] VITALS: Ht 167.6 cm; Wt 115.0 kg
[~2023-04-16] MED LIST changes: +[UNRECOGNIZED DRUG - OTHER] SC ONE
== END ==
LOC: M INFU 14:54
PROVIDERS: ATTEND Internal Medicine Nephrology
DX: E83.31 Familial hypophosphatemia (principal); Z88.4 Allergy status to anesthetic agent; Z88.5 Allergy status to narcotic agent
CPT/HCPCS: 96372; J0584

== ENCOUNTER 2023-05-14 14:55 | Outpatient (CLI) | payer MEDICARE, MEDICAID ==
[2023-05-14 14:55] VITALS: BP 117/71; O2SAT 96
[~2023-05-14 14:55] MED LIST changes: -[UNRECOGNIZED DRUG - OTHER] SC ONE
[2023-05-14] MEDS ORDERED: [UNRECOGNIZED DRUG - OTHER] SC ONE (15:00)
== END 2023-05-14 15:15 ==
LOC: M INFU 14:55
PROVIDERS: ATTEND Internal Medicine Nephrology
DX: E83.31 Familial hypophosphatemia (principal); Z88.4 Allergy status to anesthetic agent; Z88.5 Allergy status to narcotic agent
CPT/HCPCS: 96372; J0584

== ENCOUNTER 2023-06-14 16:42 | Outpatient (CLI) | payer MEDICARE, MEDICAID ==
[~2023-06-14] VITALS: Ht 167.6 cm; Wt 111.8 kg
[2023-06-14 17:00] VITALS: BP 125/75; O2SAT 96
[2023-06-14] MEDS ORDERED: [UNRECOGNIZED DRUG - OTHER] SC ONE (17:00)
[2023-06-14 17:30] VITALS: BP 126/79; O2SAT 95
== END 2023-06-14 17:30 ==
LOC: M INFU 16:42
PROVIDERS: ATTEND Internal Medicine Nephrology
DX: E83.31 Familial hypophosphatemia (principal); Z88.5 Allergy status to narcotic agent; Z88.8 Allergy status to other drugs, medicaments and biological substances
CPT/HCPCS: 96372; J0584

== ENCOUNTER 2023-07-12 16:30 | Outpatient (CLI) | payer MEDICARE, MEDICAID ==
[~2023-07-12] VITALS: Ht 167.6 cm; Wt 111.0 kg
[2023-07-12 16:30] VITALS: BP 136/80; O2SAT 98
[~2023-07-12 16:30] MED LIST changes: +[UNRECOGNIZED DRUG - CODE] SC; -[UNRECOGNIZED DRUG - CODE] SC; +[UNRECOGNIZED DRUG - OTHER] SC ONE
== END 2023-07-12 17:00 ==
LOC: M INFU 16:30
PROVIDERS: ATTEND Internal Medicine Nephrology
DX: E83.31 Familial hypophosphatemia (principal); Z88.5 Allergy status to narcotic agent; Z88.8 Allergy status to other drugs, medicaments and biological substances
CPT/HCPCS: 96372; J0584

== ENCOUNTER 2023-08-09 16:50 | Outpatient (CLI) | payer MEDICARE, MEDICAID ==
[~2023-08-09] VITALS: Ht 167.6 cm; Wt 113.7 kg
[~2023-08-09 16:50] MED LIST changes: -[UNRECOGNIZED DRUG - OTHER] SC ONE
[2023-08-09] MEDS ORDERED: [UNRECOGNIZED DRUG - OTHER] SC ONE (17:10)
[2023-08-09 17:35] VITALS: BP 126/69; O2SAT 96
== END 2023-08-09 17:35 | disposition home or self-care (01) ==
LOC: M INFU 16:50
PROVIDERS: ATTEND Internal Medicine Nephrology
DX: E83.31 Familial hypophosphatemia (principal); Z88.4 Allergy status to anesthetic agent; Z88.5 Allergy status to narcotic agent
CPT/HCPCS: 96372; J0584

== ENCOUNTER 2023-09-06 17:00 | Outpatient (CLI) | payer MEDICARE, MEDICAID ==
[~2023-09-06] VITALS: Ht 167.6 cm; Wt 114.6 kg
[~2023-09-06 17:00] MED LIST changes: +[UNRECOGNIZED DRUG - OTHER] SC ONE
[2023-09-06 17:30] VITALS: BP 123/74; O2SAT 98
== END 2023-09-06 17:30 ==
LOC: M INFU 17:00
PROVIDERS: ATTEND Internal Medicine Nephrology
DX: E83.31 Familial hypophosphatemia (principal); Z88.4 Allergy status to anesthetic agent; Z88.5 Allergy status to narcotic agent
CPT/HCPCS: 96372; J0584

== ENCOUNTER 2023-10-04 16:57 | Outpatient (CLI) | payer MEDICARE, MEDICAID ==
[~2023-10-04] VITALS: Ht 165.1 cm; Wt 114.6 kg
[~2023-10-04 16:57] MED LIST changes: -[UNRECOGNIZED DRUG - OTHER] SC ONE
[2023-10-04] MEDS ORDERED: [UNRECOGNIZED DRUG - OTHER] SC ONE (17:05)
[2023-10-04 17:09] VITALS: BP 121/78; O2SAT 98
[2023-10-04] MEDS ORDERED: LISI5TAB11 PO (17:11)
== END 2023-10-04 17:20 | disposition home or self-care (01) ==
LOC: M INFU 16:57
PROVIDERS: ATTEND Internal Medicine Nephrology
DX: E83.31 Familial hypophosphatemia (principal); Z88.5 Allergy status to narcotic agent; Z88.8 Allergy status to other drugs, medicaments and biological substances
CPT/HCPCS: 96372; J0584

== ENCOUNTER 2023-11-01 16:50 | Outpatient (CLI) | payer MEDICARE, MEDICAID ==
[~2023-11-01] VITALS: Ht 162.6 cm; Wt 125.0 kg
[~2023-11-01 16:50] MED LIST changes: +LISI5TAB11 PO
[2023-11-01 17:00] VITALS: BP 137/87; O2SAT 99
[2023-11-01] MEDS ORDERED: [UNRECOGNIZED DRUG - OTHER] SC ONE (17:00)
[2023-11-01 17:21] VITALS: BP 132/72; O2SAT 99
== END 2023-11-01 17:21 | disposition home or self-care (01) ==
LOC: M INFU 16:50
PROVIDERS: ATTEND Internal Medicine Nephrology
DX: E83.31 Familial hypophosphatemia (principal); Z88.8 Allergy status to other drugs, medicaments and biological substances; Z88.5 Allergy status to narcotic agent
CPT/HCPCS: 96372; J0584

== ENCOUNTER → 2023-11-29 | Outpatient (CLI) | payer MEDICARE, MEDICAID ==
[~2023-11-29] VITALS: Ht 162.6 cm; Wt 125.0 kg
[~2023-11-29] MED LIST changes: +[UNRECOGNIZED DRUG - OTHER] SC ONE
[2023-11-29 17:29] VITALS: BP 168/72; O2SAT 98
== END ==
LOC: M INFU 16:48
PROVIDERS: ATTEND Internal Medicine Nephrology
DX: E83.31 Familial hypophosphatemia (principal); Z88.5 Allergy status to narcotic agent; Z88.8 Allergy status to other drugs, medicaments and biological substances
CPT/HCPCS: 96372; J0584

== ENCOUNTER 2023-12-27 16:05 | Outpatient (CLI) | payer MEDICARE, MEDICAID ==
[~2023-12-27] VITALS: Ht 162.6 cm; Wt 113.5 kg
[2023-12-27 15:55] VITALS: BP 136/71; O2SAT 97
[~2023-12-27 16:05] MED LIST changes: -[UNRECOGNIZED DRUG - OTHER] SC ONE
[2023-12-27] MEDS: [UNRECOGNIZED DRUG - OTHER] SC ONE (16:16)
== END 2023-12-27 16:30 ==
LOC: M INFU 16:05
PROVIDERS: ATTEND Nurse Practitioner Family
DX: E83.31 Familial hypophosphatemia (principal); Z88.4 Allergy status to anesthetic agent; Z88.5 Allergy status to narcotic agent
CPT/HCPCS: 96372; J0584

== ENCOUNTER 2024-01-24 16:45 | Outpatient (CLI) | payer MEDICARE, MEDICAID ==
[~2024-01-24] VITALS: Ht 167.6 cm; Wt 113.0 kg
[2024-01-24 16:45] VITALS: BP 124/76; O2SAT 97
[2024-01-24] MEDS: [UNRECOGNIZED DRUG - OTHER] SC ONE (16:59)
[2024-01-27] MEDS ORDERED: ERGO500029 PO (11:27)
[2024-01-27] MEDS ORDERED: CALC500T31 PO (11:27)
[2024-01-27] MEDS ORDERED: LISI10TA22 PO (11:27)
[2024-01-27] MEDS ORDERED: CETI10CA13 PO (11:32)
== END 2024-01-24 17:05 ==
LOC: M INFU 16:45
PROVIDERS: ATTEND Nurse Practitioner Family
DX: E83.31 Familial hypophosphatemia (principal); Z88.4 Allergy status to anesthetic agent; Z88.5 Allergy status to narcotic agent
CPT/HCPCS: 96372; J0584

== ENCOUNTER → 2024-02-06 | Outpatient (CLI) | payer MEDICARE, MEDICAID ==
[~2024-02-06] MED LIST changes: +CALC500T31 PO; +CETI10CA13 PO; +ERGO500029 PO; +LISI10TA22 PO
[2024-02-06 13:29] LABS: HEMOGLOBIN 16.8 g/dl (13.5-17.5); MEAN CORPUSCULAR HEMOGLOBIN 30.3 pg (27.0-33.0); MEAN CORPUSCULAR HGB CONC 34.3 g/dl (32.0-36.5); MEAN CORPUSCULAR VOLUME 88.3 fl (80.0-96.0); PLATELET COUNT, AUTOMATED 357 10^3/uL (150-450); RED BLOOD COUNT 5.55 10^6/uL (4.30-6.10); WHITE BLOOD COUNT 10.1 10^3/uL (4.0-10.0)
[2024-02-06 13:50] LABS: BLOOD UREA NITROGEN 15 MG/DL (9-23); CALCIUM LEVEL 9.9 MG/DL (8.5-10.1); CARBON DIOXIDE LEVEL 28 MMOL/L (20-31); CHLORIDE LEVEL 102 MMOL/L (98-107); CREATININE FOR GFR 0.75 MG/DL (0.70-1.30); GLOMERULAR FILTRATION RATE > 60.0 (>60); GLUCOSE, FASTING 106 MG/DL (60-100); POTASSIUM SERUM 4.4 MMOL/L (3.5-5.1); SODIUM LEVEL 135 MMOL/L (136-145)
== END ==
LOC: M PLALAB 09:45
PROVIDERS: ATTEND Student in an Organized Health Care Education/Training Program
DX: Z01.818 Encounter for other preprocedural examination (principal)

== ENCOUNTER 2024-02-07 09:12 | Day surgery (SDC) | payer MEDICARE, MEDICAID ==
[~2024-02-07] VITALS: Ht 165.1 cm; Wt 113.4 kg
[2024-02-07] MEDS ORDERED: LR 1,000 ML IV SCH ×2 (09:40→13:45)
[2024-02-07] MEDS ORDERED: ROCURONIUM BROMIDE 50MG/5ML VIAL As Ordered ONE (10:52)
[2024-02-07] MEDS ORDERED: fentaNYL 100 MCG/2 ML INJECTION As Ordered ONE (10:52)
[2024-02-07] MEDS ORDERED: ACETAMINOPHEN 1000MG 100ML IV BAG As Ordered ONE (10:53)
[2024-02-07] MEDS ORDERED: ONDANSETRON 4MG 2ML VIAL As Ordered ONE (10:53)
[2024-02-07] MEDS ORDERED: propofoL 200 MG/20 ML VIAL As Ordered ONE (10:53)
[2024-02-07] MEDS ORDERED: KETOROLAC 60MG 2ML VIAL As Ordered ONE (10:53)
[2024-02-07] MEDS ORDERED: LIDOCAINE 2% 100MG/5ML SDV (FOR ANES.) As Ordered ONE (10:53)
[2024-02-07] MEDS ORDERED: SUGAMMADEX SODIUM 500 MG/5 ML VIAL (BRIDION) As Ordered ONE (10:54)
[2024-02-07] MEDS ORDERED: dexmedeTOMIDine (4MCG/ML)200MCG/50ML BTL (PRECEDEX) As Ordered ONE (11:41)
[2024-02-07] MEDS: LIDOCAINE W/EPINEPHRINE 1% 20ML VIAL As Ordered ONE (12:18)
[2024-02-07] MEDS ORDERED: PHENYLephrine 500MCG 5ML (100MCG/ML) SYRINGE As Ordered ONE (12:28)
[2024-02-07] MEDS ORDERED: oxyCODONE 5MG TAB PO PRN (12:55)
[2024-02-07] MEDS ORDERED: fentaNYL 100 MCG/2 ML INJECTION IV PRN (12:55)
[2024-02-07] MEDS ORDERED: ONDANSETRON 4MG 2ML VIAL IV PRN (12:55)
[2024-02-07] MEDS ORDERED: HYDROMORPHONE HCL 0.5 MG/ 0.5 ML SYRINGE IV PRN (12:55)
[2024-02-07 14:35] VITALS: BP 132/72; TEMP 97.1; O2SAT 97
== END 2024-02-07 14:40 | disposition home or self-care (01) ==
LOC: M SDC 09:12
PROVIDERS: ATTEND Dentist Oral and Maxillofacial Surgery
DX: K02.9 Dental caries, unspecified (principal); Q07.00 Arnold-Chiari syndrome without spina bifida or hydrocephalus; I10 Essential (primary) hypertension; E83.31 Familial hypophosphatemia; N18.9 Chronic kidney disease, unspecified; Z88.5 Allergy status to narcotic agent; Z88.8 Allergy status to other drugs, medicaments and biological substances
CPT/HCPCS: 41899; 88300; J0131; J1100; J1885; J2371; J2405; J3010

== ENCOUNTER → 2024-02-20 | Outpatient (CLI) | payer MEDICARE, MEDICAID | LOC: M SLEEP 20:00 | PROVIDERS: ATTEND Internal Medicine Critical Care Medicine | DX: R06.83 Snoring (principal) ==

== ENCOUNTER 2024-02-21 17:19 | Outpatient (CLI) | payer MEDICARE, MEDICAID ==
[~2024-02-21] VITALS: Ht 167.6 cm; Wt 114.0 kg
[2024-02-21 17:20] VITALS: BP 148/78; O2SAT 99
[2024-02-21] MEDS: [UNRECOGNIZED DRUG - OTHER] SC ONE (17:39)
== END 2024-02-21 17:45 | disposition home or self-care (01) ==
LOC: M INFU 17:19
PROVIDERS: ATTEND Nurse Practitioner Family
DX: E83.31 Familial hypophosphatemia (principal); Z88.5 Allergy status to narcotic agent; Z88.8 Allergy status to other drugs, medicaments and biological substances
CPT/HCPCS: 96372; J0584

== ENCOUNTER 2024-03-20 17:05 | Outpatient (CLI) | payer MEDICARE, MEDICAID ==
[~2024-03-20] VITALS: Ht 162.6 cm; Wt 114.0 kg
[2024-03-20] MEDS: [UNRECOGNIZED DRUG - OTHER] SC ONE (17:22)
[2024-03-20 17:30] VITALS: BP 130/74; O2SAT 96
== END 2024-03-20 17:30 | disposition home or self-care (01) ==
LOC: M INFU 17:05
PROVIDERS: ATTEND Nurse Practitioner Family
DX: E83.31 Familial hypophosphatemia (principal); G47.30 Sleep apnea, unspecified; G25.81 Restless legs syndrome; E66.9 Obesity, unspecified; Z88.4 Allergy status to anesthetic agent; Z88.5 Allergy status to narcotic agent; Z91.048 Other nonmedicinal substance allergy status
CPT/HCPCS: 96372; G0463; J0584

== ENCOUNTER → 2024-04-06 | Outpatient (CLI) | payer MEDICARE, MEDICAID ==
[2024-04-06 19:18] LABS: BASO # 0.1 10^3/uL (0.0-0.2); BASO % 0.9 % (0.0-1.0); EOS # 0.5 10^3/uL (0.0-0.5); EOS % 4.5 % (0.0-3.0); HEMATOCRIT 47.7 % (42.0-52.0); HEMOGLOBIN 16.6 g/dl (13.5-17.5); LYMPH # 3.7 10^3/uL (1.5-5.0); LYMPH % 31.5 % (24.0-44.0); MEAN CORPUSCULAR HEMOGLOBIN 30.7 pg (27.0-33.0); MEAN CORPUSCULAR HGB CONC 34.8 g/dl (32.0-36.5); MEAN CORPUSCULAR VOLUME 88.2 fl (80.0-96.0); MONO # 0.9 10^3/uL (0.0-0.8); MONO % 7.4 % (2.0-8.0); NEUTROPHILS # 6.6 10^3/uL (1.5-8.5); NEUTROPHILS % 55.4 % (36.0-66.0); PLATELET COUNT, AUTOMATED 342 10^3/uL (150-450); RED BLOOD COUNT 5.41 10^6/uL (4.30-6.10); WHITE BLOOD COUNT 11.9 10^3/uL (4.0-10.0)
[2024-04-06 19:39] LABS: ERYTHROCYTE SEDIMENTATION RATE 19 mm/hr (0-15)
[2024-04-06 19:43] LABS: ALBUMIN 3.8 G/DL (3.2-5.2); ALKALINE PHOSPHATASE 104 U/L (46-116); ALT/SGPT 67 U/L (7.0-40); AST/SGOT 30 U/L (<34); BILIRUBIN,TOTAL 0.9 MG/DL (0.3-1.2); BLOOD UREA NITROGEN 9 MG/DL (9-23); CALCIUM LEVEL 9.1 MG/DL (8.5-10.1); CARBON DIOXIDE LEVEL 26 MMOL/L (20-31); CHLORIDE LEVEL 104 MMOL/L (98-107); CREATININE FOR GFR 0.73 MG/DL (0.70-1.30); GLOMERULAR FILTRATION RATE > 60.0 (>60); GLUCOSE, FASTING 106 MG/DL (60-100); POTASSIUM SERUM 3.8 MMOL/L (3.5-5.1); SODIUM LEVEL 137 MMOL/L (136-145); TOTAL PROTEIN 7.4 G/DL (5.7-8.2)
[2024-04-06 19:45] LABS: URIC ACID 7.1 MG/DL (3.7-9.2)
[2024-04-08 15:08] LABS: IgG P18 AB Absent (.); IgG P23 AB Absent (.); IgG P28 AB Present (.); IgG P30 AB Absent (.); IgG P39 AB Absent (.); IgG P41 AB Present (.); IgG P45 AB Absent (.); IgG P58 AB Present (.); IgG P66 AB Absent (.); IgG P93 AB Absent (.); IgM P23 AB Absent (.); IgM P39 AB Absent (.); IgM P41 AB Absent (.); LYME IgG WB INTERPRETATION Negative (.); LYME IgM WB INTERPRETATION Negative (.)
== END ==
LOC: M RAD 18:32
PROVIDERS: ATTEND Physician Assistant
DX: M25.571 Pain in right ankle and joints of right foot (principal); L03.115 Cellulitis of right lower limb; M79.89 Other specified soft tissue disorders

== ENCOUNTER → 2024-04-09 | Outpatient (CLI) | payer MEDICARE, MEDICAID ==
[2024-04-09 19:25] LABS: BLOOD UREA NITROGEN 11 MG/DL (9-23); CALCIUM LEVEL 9.3 MG/DL (8.5-10.1); CARBON DIOXIDE LEVEL 28 MMOL/L (20-31); CHLORIDE LEVEL 104 MMOL/L (98-107); CHOLESTEROL LEVEL 174 MG/DL (<200); CHOLESTEROL RISK RATIO 5.17 (<5); CREATININE FOR GFR 0.77 MG/DL (0.70-1.30); GLOMERULAR FILTRATION RATE > 60.0 (>60); GLUCOSE, FASTING 75 MG/DL (60-100); HDL CHOLESTEROL 33.6 MG/DL (>40); LDL CHOLESTEROL 106.2 MG/DL (<100); NON-HDL-C 140.4 MG/DL; POTASSIUM SERUM 4.3 MMOL/L (3.5-5.1); SODIUM LEVEL 139 MMOL/L (136-145); TRIGLYCERIDES LEVEL 171 MG/DL (<150)
[2024-04-14 09:13] LABS: ANA SCREEN, IFA NEGATIVE (NEGATIVE)
== END ==
LOC: M PLALAB 16:22
PROVIDERS: ATTEND Student in an Organized Health Care Education/Training Program
DX: R07.9 Chest pain, unspecified (principal); M02.371 Reiter's disease, right ankle and foot

== ENCOUNTER → 2024-04-09 | Outpatient (REF) | payer MEDICARE, MEDICAID | LOC: M SFHCPLAZ 15:55 | PROVIDERS: ATTEND Student in an Organized Health Care Education/Training Program | DX: R07.9 Chest pain, unspecified (principal); M02.371 Reiter's disease, right ankle and foot ==

== ENCOUNTER 2024-04-27 16:05 | Outpatient (CLI) | payer MEDICARE, MEDICAID ==
[~2024-04-27] VITALS: Ht 167.6 cm; Wt 111.3 kg
[2024-04-27 16:13] VITALS: BP 116/68; O2SAT 96
[2024-04-27] MEDS: [UNRECOGNIZED DRUG - OTHER] SC ONE (16:28)
== END 2024-04-27 16:35 | disposition home or self-care (01) ==
LOC: M INFU 16:05
PROVIDERS: ATTEND Nurse Practitioner Family
DX: E83.31 Familial hypophosphatemia (principal); Z88.5 Allergy status to narcotic agent; Z88.4 Allergy status to anesthetic agent
CPT/HCPCS: 96372; J0584

== ENCOUNTER → 2024-05-06 | Outpatient (REF) | payer MEDICARE, MEDICAID ==
[2024-05-06 19:03] LABS: ALBUMIN 3.7 G/DL (3.2-5.2); BILIRUBIN,DIRECT 0.3 MG/DL (<0.4); BILIRUBIN,TOTAL 1.1 MG/DL (0.3-1.2); TOTAL PROTEIN 7.1 G/DL (5.7-8.2)
== END ==
LOC: M LAB REF 17:16
PROVIDERS: ATTEND Nurse Practitioner Family
DX: R94.5 Abnormal results of liver function studies (principal)

== ENCOUNTER 2024-05-25 16:15 | Outpatient (CLI) | payer MEDICARE, MEDICAID ==
[2024-05-25] MEDS: [UNRECOGNIZED DRUG - OTHER] SC ONE (16:26)
[2024-05-25 16:36] VITALS: BP 127/67; O2SAT 98
== END 2024-05-25 16:40 ==
LOC: M INFU 16:15
PROVIDERS: ATTEND Nurse Practitioner Family
DX: E83.31 Familial hypophosphatemia (principal); Z88.5 Allergy status to narcotic agent; Z88.8 Allergy status to other drugs, medicaments and biological substances
CPT/HCPCS: 96372; J0584

== ENCOUNTER 2024-06-22 15:44 | Outpatient (CLI) | payer MEDICARE, MEDICAID ==
[~2024-06-22] VITALS: Ht 167.6 cm; Wt 250.0 kg
[2024-06-22 16:02] VITALS: BP 121/66; O2SAT 97
[2024-06-22] MEDS: [UNRECOGNIZED DRUG - OTHER] SC ONE (16:06)
== END 2024-06-22 16:15 ==
LOC: M INFU 15:44
PROVIDERS: ATTEND Nurse Practitioner Family
DX: E83.31 Familial hypophosphatemia (principal); Z88.5 Allergy status to narcotic agent; Z88.8 Allergy status to other drugs, medicaments and biological substances
CPT/HCPCS: 96372; J0584

== ENCOUNTER → 2024-06-25 | Outpatient (REF) | payer MEDICARE, MEDICAID ==
[2024-06-25 18:48] LABS: HEMOGLOBIN A1c 5.2 % (4.0-6.0)
[2024-07-08 00:58] LABS: ALPHA 2-MACROGLOBULINS,QN 205 mg/dL (106-279); ALT (SGPT) P5P 77 U/L (9-46); APOLIPOPROTEIN A-1 129 mg/dL (94-176); BILIRUBIN, TOTAL 0.7 mg/dL (0.2-1.2); FIBROSIS STAGE NO FIBROSIS (F0); GGT 34 U/L (3-90); HAPTOGLOBIN 176 mg/dL (43-212); NECROINFLAM ACT GRADE MINIMAL ACTIVITY (A0); NECROINFLAM ACT SCORE 0.42
== END ==
LOC: M SFHCPLAZ 16:18
PROVIDERS: ATTEND Family Medicine
DX: K75.81 Nonalcoholic steatohepatitis (NASH) (principal); Z13.1 Encounter for screening for diabetes mellitus

== ENCOUNTER → 2024-08-05 | Outpatient (CLI) | payer MEDICARE, MEDICAID ==
[~2024-08-05] MED LIST changes: -CALC500T31 PO; +OYST500T16 PO
== END ==
LOC: M RAD 14:14
PROVIDERS: ATTEND Nurse Practitioner Family
DX: N20.0 Calculus of kidney (principal)

== ENCOUNTER 2024-09-14 16:25 | Outpatient (CLI) | payer MEDICARE, MEDICAID ==
[~2024-09-14] VITALS: Ht 167.6 cm; Wt 110.9 kg
[2024-09-14] MEDS: [UNRECOGNIZED DRUG - OTHER] SC ONE (16:53)
[2024-09-14 17:00] VITALS: BP_SYST 121; BP_SYST 130; BP_DIAS 71; BP_DIAS 79; O2SAT 97
== END 2024-09-14 17:00 ==
LOC: M INFU 16:25
PROVIDERS: ATTEND Nurse Practitioner Family
DX: E83.31 Familial hypophosphatemia (principal); Z88.5 Allergy status to narcotic agent; Z88.8 Allergy status to other drugs, medicaments and biological substances
CPT/HCPCS: 96372; J0584

== ENCOUNTER 2024-11-25 16:00 | Outpatient (CLI) | payer MEDICARE, MEDICAID ==
[~2024-11-25] VITALS: Ht 167.6 cm; Wt 110.9 kg
[~2024-11-25 16:00] MED LIST changes: +[UNRECOGNIZED DRUG - CODE] SC; -[UNRECOGNIZED DRUG - CODE] SC
[2024-11-25 16:15] VITALS: BP 130/92; O2SAT 96
[2024-11-25] MEDS: [UNRECOGNIZED DRUG - OTHER] SC ONE (16:26)
== END 2024-11-25 16:30 | disposition home or self-care (01) ==
LOC: M INFU 16:00
PROVIDERS: ATTEND Nurse Practitioner Family
DX: E83.31 Familial hypophosphatemia (principal); Z88.5 Allergy status to narcotic agent; Z88.8 Allergy status to other drugs, medicaments and biological substances
CPT/HCPCS: 96372; J0584

== ENCOUNTER 2024-12-23 16:00 | Outpatient (CLI) | payer MEDICARE, MEDICAID ==
[~2024-12-23] VITALS: Ht 167.6 cm; Wt 110.0 kg
[2024-12-23 16:00] VITALS: BP 125/79; O2SAT 99
[2024-12-23] MEDS: [UNRECOGNIZED DRUG - OTHER] SC ONE (16:35)
[2024-12-23 16:45] VITALS: BP 130/80; O2SAT 99
== END 2024-12-23 16:40 ==
LOC: M INFU 16:00
PROVIDERS: ATTEND Nurse Practitioner Family
DX: E83.31 Familial hypophosphatemia (principal); Z88.5 Allergy status to narcotic agent; Z88.8 Allergy status to other drugs, medicaments and biological substances
CPT/HCPCS: 96372; J0584

== ENCOUNTER → 2025-01-27 | Outpatient (CLI) | payer MEDICARE, MEDICAID ==
[~2025-01-27] VITALS: Ht 165.1 cm; Wt 110.0 kg
[2025-01-27 16:20] VITALS: BP 124/78; O2SAT 94
[2025-01-27] MEDS: [UNRECOGNIZED DRUG - OTHER] SC ONE (16:23)
== END ==
LOC: M INFU 16:05
PROVIDERS: ATTEND Nurse Practitioner Family
DX: E83.31 Familial hypophosphatemia (principal); Z88.5 Allergy status to narcotic agent; Z88.8 Allergy status to other drugs, medicaments and biological substances
CPT/HCPCS: 96372; J0584

== ENCOUNTER 2025-05-05 13:35 | Outpatient (CLI) | payer MEDICARE, MEDICAID ==
[~2025-05-05] VITALS: Ht 167.6 cm; Wt 104.5 kg
[2025-05-05] MEDS: [UNRECOGNIZED DRUG - OTHER] SC ONE (14:27)
[2025-05-05 14:40] VITALS: BP 133/83; O2SAT 96
[2025-05-05] MEDS ORDERED: [UNRECOGNIZED DRUG - OTHER] SC ONE (15:00)
== END 2025-05-05 14:40 | disposition home or self-care (01) ==
LOC: M INFU 13:35
PROVIDERS: ATTEND Nurse Practitioner Family
DX: E83.31 Familial hypophosphatemia (principal); Z88.5 Allergy status to narcotic agent; Z88.8 Allergy status to other drugs, medicaments and biological substances
CPT/HCPCS: 96372; J0584

== ENCOUNTER 2025-06-02 15:36 | Outpatient (CLI) | payer MEDICARE, MEDICAID ==
[~2025-06-02] VITALS: Ht 167.6 cm; Wt 104.8 kg
[2025-06-02 15:43] VITALS: BP 125/70; O2SAT 99
[2025-06-02] MEDS: [UNRECOGNIZED DRUG - OTHER] SC ONE (15:56)
== END 2025-06-02 16:05 ==
LOC: M INFU 15:36
PROVIDERS: ATTEND Nurse Practitioner Family
DX: E83.31 Familial hypophosphatemia (principal); Z88.5 Allergy status to narcotic agent; Z88.8 Allergy status to other drugs, medicaments and biological substances
CPT/HCPCS: 96372; J0584

== ENCOUNTER → 2025-07-27 | Outpatient (CLI) | payer MEDICARE, MEDICAID ==
[2025-07-27 18:14] LABS: BASO # 0.1 10^3/uL (0.0-0.2); BASO % 1.1 % (0.0-1.0); EOS # 0.8 10^3/uL (0.0-0.5); EOS % 6.3 % (0.0-3.0); LYMPH # 4.6 10^3/uL (1.5-5.0); LYMPH % 35.9 % (24.0-44.0); MONO # 1.2 10^3/uL (0.0-0.8); MONO % 9.0 % (2.0-8.0); NEUTROPHILS # 6.1 10^3/uL (1.5-8.5); NEUTROPHILS % 47.4 % (36.0-66.0); PLATELET COUNT, AUTOMATED 350 10^3/uL (150-450)
[2025-07-27 18:39] LABS: TOTAL 25(OH) VITAMIN D 114.2 NG/ML (20.0-100.0)
[2025-07-27 18:40] LABS: ALT/SGPT 90 U/L (7.0-40); AST/SGOT 50 U/L (<34); CALCIUM LEVEL 9.0 MG/DL (8.5-10.1); CARBON DIOXIDE LEVEL 27 MMOL/L (20-31); CHLORIDE LEVEL 101 MMOL/L (98-107); CHOLESTEROL LEVEL 179 MG/DL (<200); CHOLESTEROL RISK RATIO 4.01 (<5); CREATININE FOR GFR 0.77 MG/DL (0.70-1.30); GLOMERULAR FILTRATION RATE > 90.0 (>60); LDL CHOLESTEROL 104.2 MG/DL (<100); NON-HDL-C 134.4 MG/DL; POTASSIUM SERUM 4.2 MMOL/L (3.5-5.1); SODIUM LEVEL 138 MMOL/L (136-145); TRIGLYCERIDES LEVEL 151 MG/DL (<150)
[2025-07-27 18:46] LABS: ESTIMATED AVERAGE GLUCOSE 100.0 MG/DL (60-110)
== END ==
LOC: M PLALAB 15:05
PROVIDERS: ATTEND Family Medicine
DX: E55.9 Vitamin D deficiency, unspecified (principal); Z13.1 Encounter for screening for diabetes mellitus; D72.829 Elevated white blood cell count, unspecified; K75.81 Nonalcoholic steatohepatitis (NASH)

== ENCOUNTER 2025-11-03 15:42 | Outpatient (CLI) | payer MEDICARE, MEDICAID ==
[~2025-11-03] VITALS: Ht 167.6 cm; Wt 109.0 kg
[2025-11-03] MEDS: [UNRECOGNIZED DRUG - OTHER] SC ONE (16:18)
[2025-11-03 16:40] VITALS: BP 120/78; O2SAT 96
== END 2025-11-03 16:40 | disposition home or self-care (01) ==
LOC: M INFU 15:42
PROVIDERS: ATTEND Nurse Practitioner Family
DX: E83.31 Familial hypophosphatemia (principal); Z88.5 Allergy status to narcotic agent; Z88.8 Allergy status to other drugs, medicaments and biological substances
CPT/HCPCS: 96372; J0584